=== PATIENT | female | born 1950 | race African-American/Black ===

== ENCOUNTER → 2019-03-28 | Outpatient (CLI) | payer OTHER ==
--- NOTE | 2019-03-29 14:11 | 2DMMODE ---
[facility] [employer] [place] [address] 2 D/M-MODE ECHOCARDIOGRAM Name: VIRGIL FARFAN Room #: REG [facility]#: [id number] Admission: 03/28/19 Attend Phys: Huy Patel DO Discharge: Date of : 52 Report #: [id number] THIS REPORT FOR: //name// ADDENDUM APPROVED REPORT Study performed: 03/28/2019 11:13:14 EXAM: Comprehensive 2D, Doppler, and color-flow Echocardiogram Patient Location: Out-Patient Status: routine BSA: 1.76 HR: 63 bpm BP: 112/76 mmHg Rhythm: NSR Other Information Study Quality: Good Indications Elevated calcium score. Hx: HTN, HLP. 2D Dimensions RVDd: 28.99 mm IVSd: 12.00 (7-11mm) LVOT Diam: 20.13 (18-24mm) LVDd: 42.05 mm PWd: 11.00 (7-11mm) LVDs: 25.94 (25-40mm) Aortic Root: 32.30 mm Volumes Left Atrial Volume (Systole) Single Plane 4CH: 47.83 mL Single Plane 2CH: 62.60 mL LA ESV Index: 33.00 mL/m2 Aortic Valve AoV Peak Chito.: 1.35 m/s AO Peak Gr.: 7.32 mmHg LVOT Max P.88 mmHg LVOT Max V: 1.21 m/s PRINCE Vmax: 2.85 cm2 Mitral Valve E/A Ratio: 1.4 MV Decel. Time: 202.58 ms [facility] [address] [place] [address] 2 D/M-MODE ECHOCARDIOGRAM Name: VIRGIL FARFAN [id number] Admission: 03/28/19 Attend Phys: Huy Patel DO Discharge: Date of : 52 Report #: [id number] MV E Max Chito.: 0.94 m/s MV A Chito.: 0.68 m/s MV PHT: 58.75 ms IVRT: 87.66 ms Pulmonary Valve PV Peak Chito.: 0.72 m/s PV Peak Gr.: 2.09 mmHg Pulmonary Vein P Vein S: 0.62 m/s P Vein A: 0.26 m/s P Vein D: 0.36 m/s P Vein A Dur.: 124.6 msec P Vein S/D Ratio: 1.72 Tricuspid Valve RAP Estimate: 5.00 mmHg Left Ventricle The left ventricle is normal size. There is normal LV segmental wall motion. Mild concentric left ventricular hypertrophy. Left ventricular systolic function is normal. LVEF is 60-65%. Right Ventricle The right ventricle is normal size. The right ventricular systolic function is normal. Atria Left atrium is mildly dilated. The right atrium size is normal. Aortic Valve The aortic valve is normal in structure. Leaflets are mildly calcified. No aortic regurgitation is present. There is no aortic valvular stenosis. Mitral Valve The mitral valve is normal in structure. There is no mitral valve regurgitation noted. No evidence of mitral valve stenosis. Tricuspid Valve The tricuspid valve is normal in structure. Unable to assesss PA pressure. There is no tricuspid valve regurgitation noted. Pulmonic Valve The pulmonary valve is normal in structure. Trace pulmonic regurgitation. [facility] [place] [address] 2 D/M-MODE ECHOCARDIOGRAM Name: VIRGIL FARFAN Room #: REG [facility]#: [id number] Admission: 03/28/19 Attend Phys: Huy Patel DO Discharge: Date of : 52 Report #: [id number] Great Vessels The aortic root is normal in size. The ascending aorta is normal in size. IVC is normal in size and collapses >50% with inspiration. Pericardium There is no pericardial effusion. <Conclusion> The left ventricle is normal size. Mild concentric left ventricular hypertrophy. Left ventricular systolic function is normal. The right ventricle is normal size. Left atrium is mildly dilated. The aortic valve is normal in structure. Leaflets are mildly calcified. There is no mitral valve regurgitation noted. There is no tricuspid valve regurgitation noted. <ELECTRONICALLY SIGNED> By: Arthur Donis MD 03/29/19 1410 09 09 Arthur Donis MD /SULMA
== END ==
LOC: CV 10:32 → NUC 10:32
DX: R07.9 Chest pain, unspecified (principal); I25.10 Atherosclerotic heart disease of native coronary artery without angina pectoris; E78.5 Hyperlipidemia, unspecified; I11.9 Hypertensive heart disease without heart failure; Z87.891 Personal history of nicotine dependence; Z79.899 Other long term (current) drug therapy